=== PATIENT | female | born 1965 | race Caucasian/White ===

== ENCOUNTER 2016-10-09 08:39 | Day surgery (SDC) | payer OTHER, MEDICAID ==
[2016-10-09] MEDS ORDERED: LR 1,000 ML IV ONE (10:41)
--- NOTE | 2016-10-09 11:20 | GPN ---
[f rep st] PROCEDURE NOTE PREPROCEDURE DIAGNOSIS: Constipation. POSTPROCEDURE DIAGNOSIS: Colonoscopy without obvious abnormalities, poor prep. MEDICATIONS: Monitored anesthesia care. INDICATION: The patient is a 51-year-old female with history of chronic constipation. She also has a history of bipolar disorder, borderline personality disorder, PTSD, chronic pain and tobacco use. She is here today for colonoscopy for constipation. The risks and benefits of the procedure were dis cussed with the patient and consent obtained. Risks include, but not limited to, bleeding, perforati on, risks associated with sedation. The patient is ASA class 3. DESCRIPTION OF PROCEDURE: The endoscope was inserted into the cecum. There was stool throughout the colon making visualization difficult. Approximately 40% of the colon was obscured secondary to liqu id and solid stool. The appendiceal orifice was identified. The ileocecal valve was identified. Th e portion of the colon visualized appeared normal. There were no obvious polyps. However, polyps le ss than 1 cm could have been missed for identification. Retroflexed views in the rectum were normal. IMPRESSION: 1. Poor colon preparation, which was adequate for diagnostic purposes but not adequate for screening purposes. 2. No obvious explanation for constipation. RECOMMENDATIONS: 1. Discharge to home with escort. 2. Advance diet as tolerated. 3. Increase dietary fiber and add Benefiber 1-2 scoops orally daily. She can also take MiraLAX 17 g orally daily as needed for constipation. 4. The interval for screening colonoscopy is unknown. She tells me that she might have had a colono scopy 3 years ago which was normal. If this is the case, she would be due in 7 years. However, if s he has not had a colonoscopy, she would need a repeat colonoscopy with a 2 day prep since this is not adequate for screening purposes. Thank you for allowing me to participate in the care of the patient. Do not hesitate to call for zoey millard. /[id number]/MODL
== END 2016-10-09 11:35 | disposition home or self-care (01) ==
LOC: FSGY 08:39
PROVIDERS: ATTEND Internal Medicine Gastroenterology
PROC: 0DJD8ZZ Inspection of Lower Intestinal Tract, Via Natural or Artificial Opening Endoscopic (ICD-10-PCS; principal; 2016-10-09 09:45)
DX: K59.00 Constipation, unspecified (principal); K21.9 Gastro-esophageal reflux disease without esophagitis; F31.9 Bipolar disorder, unspecified; F43.10 Post-traumatic stress disorder, unspecified; F17.200 Nicotine dependence, unspecified, uncomplicated; G89.29 Other chronic pain

== ENCOUNTER → 2016-11-15 | Outpatient (CLI) | payer OTHER, MEDICAID | LOC: FCPNEURO 21:30 | PROVIDERS: ATTEND Psychiatry & Neurology Sleep Medicine | DX: G47.31 Primary central sleep apnea (principal) ==

== ENCOUNTER → 2019-02-25 | Outpatient (CLI) | payer OTHER, MEDICAID | LOC: FCPNEURO 23:24 ==